=== PATIENT | male | born 1990 | race African-American/Black ===

== ENCOUNTER 2016-04-06 00:40 | Emergency (ER) | payer BC ==
[~2016-04-06] VITALS: Ht 180.3 cm; Wt 133.9 kg
[~2016-04-06 00:40] MED LIST: ATOR20TA58 PO; GLIM2TAB2 PO; LEVO500T38 PO; LISI5TAB PO; METF500T4 PO
[2016-04-06] MEDS ORDERED: KETOROLAC TROMETHAMINE 30 MG/ML SYRINGE. IV ONE (01:15)
[2016-04-06] MEDS ORDERED: ONDANSETRON PF 4 MG/2 ML VIAL. IV ONE (01:15)
[2016-04-06] MEDS ORDERED: IV NORMAL SALINE 1000ML BAG 1,000 ML IV ONE (01:15)
--- NOTE | 2016-04-06 01:17 | PHYS DOC ---
Past Medical History Past Medical History: Diabetes-Type II, High Cholesterol, Hypertension Past Surgical History: No Surgical History Alcohol Use: None Drug Use: None Adult General Chief Complaint Chief Complaint: HEADACHE HPI HPI 26-year-old male who is a newly diabetic who started insulin therapy several months ago who states he's had difficulty controlling his blood sugars. Over the last several days he's had some nausea and vomiting with headache. He was at work tonight and checked his blood glucose and found it to be registering as high. He decided to prevent for evaluation. He also states he is having history of high cholesterol, hypertension and may have some mild kidney disease. He states he has had polydipsia and polyuria. He rates his headache as mild and rated a 6/10 on the pain scale. Review of Systems Review of Systems Constitutional: Denies fever or chills [] Eyes: Denies change in visual acuity, redness, or eye pain [] HENT: Denies nasal congestion or sore throat [] Respiratory: Denies cough or shortness of breath [] Cardiovascular: No additional information not addressed in HPI [] GI: Denies abdominal pain, has nausea, has vomiting, denies bloody stools or diarrhea [] : Denies dysuria or hematuria [] Musculoskeletal: Denies back pain or joint pain [] Integument: Denies rash or skin lesions [] Neurologic: Has headache, denies focal weakness, denies sensory changes [] Endocrine: Denies polyuria or polydipsia [] Current Medications Current Medications Current Medications Medications (Trade) Dose Ordered Sig/Michael Start Time Stop Time Status Last Admin Dose Admin Ketorolac Tromethamine (Toradol) 30 mg 1X ONCE 04/06/16 01:15 04/06/16 01:49 DC 04/06/16 01:15 30 MG Ondansetron HCl (Zofran) 4 mg 1X ONCE 04/06/16 01:15 04/06/16 01:49 DC 04/06/16 01:15 4 MG Sodium Chloride (Iv Sodium Chloride 0.9% 1000ml Bag) 1,000 ml @ 1,000 mls/hr 1X ONCE 04/06/16 01:15 04/06/16 02:14 DC 04/06/16 01:15 1,000 MLS/HR Allergies Allergies Allergies Coded Allergies Type Severity Reaction Last Updated Verified No Known Drug Allergies 12/25/13 No Physical Exam Physical Exam Constitutional: Well developed, well nourished, no acute distress, non-toxic appearance. [] HENT: Normocephalic, atraumatic, bilateral external ears normal, oropharynx moist, no oral exudates, nose normal. [] Eyes: PERRLA, EOMI, conjunctiva normal, no discharge. [] Neck: Normal range of motion, no tenderness, supple, no stridor. [] Cardiovascular:Heart rate regular rhythm, no murmur [] Lungs & Thorax: Bilateral breath sounds clear to auscultation [] Abdomen: Bowel sounds normal, soft, no tenderness, no masses, no pulsatile masses. [] Skin: Warm, dry, no erythema, no rash. [] Back: No tenderness, no CVA tenderness. [] Extremities: No tenderness, no cyanosis, no clubbing, ROM intact, no edema. [] Neurologic: Alert and oriented X 3, normal motor function, normal sensory function, no focal deficits noted. [] Psychologic: Affect normal, judgement normal, mood normal. [] Current Patient Data Vital Signs Vital Signs Date Time Temp Pulse Resp B/P Pulse Ox O2 Delivery O2 Flow Rate FiO2 04/06/16 00:55 98.4 83 20 170/79 96 Room Air 98.4 Lab Values Laboratory Tests Test 04/06/16 00:53 04/06/16 00:55 04/06/16 01:35 04/06/16 02:00 Glucose (Fingerstick) 376mg/dL (70-99) H White Blood Count 6.8x10^3/uL (4.0-11.0) Red Blood Count 4.94x10^6/uL (4.30-5.70) Hemoglobin 13.2g/dL (13.0-17.5) Hematocrit 41.0% (39.0-53.0) Mean Corpuscular Volume 83fL (79-100) Mean Corpuscular Hemoglobin 27pg (25-35) Mean Corpuscular Hemoglobin Concent 32g/dL (31-37) Red Cell Distribution Width 13.0% (11.5-14.5) Platelet Count 211x10^3/uL (140-400) Neutrophils (%) (Auto) 51% (31-73) Lymphocytes (%) (Auto) 37% (24-48) Monocytes (%) (Auto) 10% (0-9) H Eosinophils (%) (Auto) 2% (0-3) Basophils (%) (Auto) 1% (0-3) Neutrophils # (Auto) 3.4x10^3uL (1.8-7.7) Lymphocytes # (Auto) 2.5x10^3/uL (1.0-4.8) Monocytes # (Auto) 0.7x10^3/uL (0.0-1.1) Eosinophils # (Auto) 0.1x10^3/uL (0.0-0.7) Basophils # (Auto) 0.0x10^3/uL (0.0-0.2) Sodium Level 137mmol/L (136-145) Potassium Level 3.7mmol/L (3.5-5.1) Chloride Level 100mmol/L (98-107) Carbon Dioxide Level 25mmol/L (21-32) Anion Gap 12 (6-14) Blood Urea Nitrogen 11mg/dL (8-26) Creatinine 1.0mg/dL (0.7-1.3) Estimated GFR (Cockcroft-Gault) 111.1 BUN/Creatinine Ratio 11 (6-20) Glucose Level 394mg/dL (70-99) H Calcium Level 9.2mg/dL (8.5-10.1) Total Bilirubin 0.4mg/dL (0.2-1.0) Aspartate Amino Transferase (AST) 19U/L (15-37) Alanine Aminotransferase (ALT) 38U/L (16-63) Alkaline Phosphatase 71U/L (46-116) Total Protein 7.6g/dL (6.4-8.2) Albumin 3.7g/dL (3.4-5.0) Albumin/Globulin Ratio 0.9 (1.0-1.7) L Influenza Type A Antigen Negative (NEGATIVE) Influenza Type B Antigen Negative (NEGATIVE) Urine Collection Type Unknown Urine Color Yellow Urine Clarity Clear Urine pH 6.0 Urine Specific [place] >=1.030 Urine Protein Negativemg/dL (NEG-TRACE) Urine Glucose (UA) >=1000mg/dL (NEG) Urine Ketones (Stick) Negativemg/dL (NEG) Urine Blood Negative (NEG) Urine Nitrite Negative (NEG) Urine Bilirubin Negative (NEG) Urine Urobilinogen Dipstick 0.2mg/dL (0.2 mg/dL) Urine Leukocyte Esterase Negative (NEG) Urine RBC Occ/HPF (0-2) Urine WBC Occ/HPF (0-4) Urine Squamous Epithelial Cells Occ/LPF Urine Bacteria 0/HPF (0-FEW) Laboratory Tests 04/06/16 00:55 Laboratory Tests 04/06/16 00:55 EKG EKG EKG as interpreted by me shows a sinus rhythm with a leftward axis and a rate of 85 bpm. There are noted T-wave inversions in leads V3, V4, V5, V6, lead 2, lead 3, aVF. These findings were also present on EKG he had obtained back in 2015 and there is not a significant degree of change on this EKG compared to the previous EKG. Radiology/Procedures Radiology/Procedures [] Course & Med Decision Making Course & Med Decision Making Pertinent Labs and Imaging studies reviewed. (See chart for details) 26-year-old male who is having an elevated blood glucose will be given fluids and laboratory workup to rule out any acute laboratory abnormalities. Ultimately if his laboratory workup is negative, he will be safe to be discharged to follow closely with Veronica Cardoso for better control of his blood glucose levels. His auditory workup was unrevealing. His urine did not reveal any ketones. His blood glucose while elevated is in the 300s and is safe for him to be discharged with close follow-up with Dr. Cardoso. I gave him strict instructions to remain well-hydrated take anti-inflammatories for his headache. He was discharged without incident feeling improved after receiving a liter of fluid and a dose of IV Toradol. Dragon Disclaimer Dragon Disclaimer This electronic medical record was generated, in whole or in part, using a voice recognition dictation system. Departure Departure Impression: Primary Impression: Hyperglycemia Additional Impression: Headache Disposition: 01 HOME, SELF-CARE Condition: STABLE Referrals: VERONICA CARDOSO MD (PCP) Patient Instructions: Hyperglycemia, [id number] Additional Instructions: Please follow-up with Dr. Cardoso as instructed in the next 1-2 days. Continue to drink plenty of fluids. Return to the ER if you develop any worsening of your symptoms. Continue to take your insulin as prescribed. Problem Qualifiers ELVIA MCINTOSH DO Apr 06, 2016 01:17
[2016-04-06 01:22] LABS: BASO % 1 % (0-3); EOS % 2 % (0-3); HEMOGLOBIN 13.2 g/dL (13.0-17.5); LYMPH # 2.5 x10^3/uL (1.0-4.8); LYMPH % 37 % (24-48); MEAN CORPUSCULAR HEMOGLOBIN 27 pg (25-35); MEAN CORPUSCULAR HGB CONC 32 g/dL (31-37); MEAN CORPUSCULAR VOLUME 83 fL (79-100); MONO % 10 % (0-9); NEUT % 51 % (31-73); PLATELET COUNT 211 x10^3/uL (140-400); RED BLOOD COUNT 4.94 x10^6/uL (4.30-5.70); WHITE BLOOD COUNT 6.8 x10^3/uL (4.0-11.0)
[2016-04-06 01:28] LABS: CALCIUM 9.2 mg/dL (8.5-10.1); GFR 111.1; POTASSIUM 3.7 mmol/L (3.5-5.1)
[2016-04-06 01:35] LABS: ALBUMIN 3.7 g/dL (3.4-5.0); ALBUMIN/GLOBULIN RATIO 0.9 (1.0-1.7); TOTAL BILIRUBIN 0.4 mg/dL (0.2-1.0); TOTAL PROTEIN 7.6 g/dL (6.4-8.2)
[2016-04-06 02:08] LABS: OBC FLU VALID
[2016-04-06 02:26] VITALS: BP 148/79
[2016-04-06 02:34] LABS: BILIRUBIN,URINE NEGATIVE (NEG); GLUCOSE,URINE >=1000 mg/dL (NEG); NITRITE,URINE NEGATIVE (NEG); PROTEIN,URINE NEGATIVE (NEG-TRACE); UROBILINOGEN,URINE 0.2 mg/dL (0.2 mg/dL)
[2016-04-06 02:45] LABS: BACTERIA,URINE 0 /HPF (0-FEW); RBC,URINE OCC /HPF (0-2); SQUAMOUS EPITHELIAL CELL,UR OCC /LPF; WBC,URINE OCC /HPF (0-4)
--- NOTE | 2016-04-06 06:49 | EKG ---
[facility] [address] [place] [address] Test Date: 2016-04-06 Test Time: 01:22:35 Pat Name: KAROLYN ARECHIGA Department: Room: Gender: M Electronic Engineering Draftsperson: : 1990 Requested By: ELVIA MCINTOSH Order Number: [id number] Reading MD: Sweta Méndez Measurements Intervals [place] Rate: 85 P: 34 CT: 122 QRS: -3 QRSD: 86 T: -31 QT: 334 QTc: 402 Interpretive Statements SINUS RHYTHM LEFTWARD AXIS ST & T ABNORMALITY, CONSIDER LATERAL ISCHEMIA ABNORMAL ECG Electronically Signed On 04-07-2016 9:34:32 [employer]INE PIPEFIT[employer] HELPER by Sweta Méndez
== END 2016-04-06 03:02 | disposition home or self-care (01) ==
LOC: ER 01:10
DX: E11.65 Type 2 diabetes mellitus with hyperglycemia (principal); R51 Headache; E78.00 Pure hypercholesterolemia, unspecified; I10 Essential (primary) hypertension
CPT/HCPCS: 36415; 80053; 81001; 82947; 85027; 87804; 93005; 96361; 96374; 96375; 99285; J1885; J2405; J7030

== ENCOUNTER 2016-07-22 09:21 | Emergency (ER) | payer BC ==
[~2016-07-22] VITALS: Ht 180.3 cm; Wt 131.5 kg
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
[2016-07-22] MEDS ORDERED: TRAM50TA PO (10:39)
[2016-07-22 10:42] VITALS: BP 152/91
== END 2016-07-22 10:53 | disposition home or self-care (01) ==
LOC: ER 09:21
DX: S00.83XA Contusion of other part of head, initial encounter (principal); J30.9 Allergic rhinitis, unspecified; H92.02 Otalgia, left ear; E11.9 Type 2 diabetes mellitus without complications; I10 Essential (primary) hypertension; E78.00 Pure hypercholesterolemia, unspecified; G47.30 Sleep apnea, unspecified; Y04.8XXA Assault by other bodily force, initial encounter; Y93.89 Activity, other specified; Y92.89 Other specified places as the place of occurrence of the external cause; Y99.8 Other external cause status
CPT/HCPCS: 70110; 99284

== ENCOUNTER 2017-04-15 08:16 | Emergency (ER) | payer SELFPAY, BC ==
[2017-04-15] MEDS ORDERED: CONTRAST GIVEN MC (08:45)
[2017-04-15] MEDS: ONDANSETRON PF 4 MG/2 ML VIAL. IV (08:52)
[2017-04-15] MEDS: MORPHINE SULFATE 4 MG/ML DISP.SYRIN. IV/SQ (08:52)
[2017-04-15] MEDS: IV NORMAL SALINE 1000ML BAG 1,000 ML IV (08:53)
[2017-04-15 08:56] LABS: ADD MAN DIFF? NO
[2017-04-15 09:03] LABS: BASO % 0 % (0-3); EOS # 0.1 x10^3/uL (0.0-0.7); EOS % 1 % (0-3); HEMATOCRIT 41.6 % (39.0-53.0); LYMPH # 2.9 x10^3/uL (1.0-4.8); LYMPH % 44 % (24-48); MEAN CORPUSCULAR HEMOGLOBIN 27 pg (25-35); MEAN CORPUSCULAR HGB CONC 34 g/dL (31-37); MEAN CORPUSCULAR VOLUME 80 fL (79-100); MONO # 0.6 x10^3/uL (0.0-1.1); MONO % 9 % (0-9); NEUT % 46 % (31-73); PLATELET COUNT 234 x10^3/uL (140-400); RED BLOOD COUNT 5.17 x10^6/uL (4.30-5.70); RED CELL DISTRIBUTION WIDTH 13.4 % (11.5-14.5); WHITE BLOOD COUNT 6.5 x10^3/uL (4.0-11.0)
[2017-04-15 09:12] LABS: ANION GAP 14 (6-14); BLOOD UREA NITROGEN 11 mg/dL (8-26); CALCIUM 8.6 mg/dL (8.5-10.1); CARBON DIOXIDE 24 mmol/L (21-32); CHLORIDE 98 mmol/L (98-107); CREATININE 0.9 mg/dL (0.7-1.3); GFR 124.4; GLUCOSE 344 mg/dL (70-99); POTASSIUM 3.9 mmol/L (3.5-5.1); SODIUM 136 mmol/L (136-145)
[2017-04-15 09:13] LABS: PARTIAL THROMBOPLASTIN TIME 28 SEC (24-38); PROTHROMBIN TIME PATIENT 12.4 SEC (11.7-14.0)
[2017-04-15 09:15] LABS: ETHANOL < 10 mg/dL (0-10)
[2017-04-15 09:21] LABS: LACTIC ACID 2.5 mmol/L (0.4-2.0)
[2017-04-15 09:30] LABS: TROPONINI < 0.017 ng/mL (0.000-0.055)
[2017-04-15] MEDS: IOHEXOL 300 MG/ML 100ML VIAL. IV (09:43)
[2017-04-15 09:50] LABS: BILIRUBIN,URINE NEGATIVE (NEG); CLARITY,URINE CLEAR; COLOR,URINE YELLOW; GLUCOSE,URINE >=1000 mg/dL (NEG); NITRITE,URINE NEGATIVE (NEG); PROTEIN,URINE >=300 mg/dL (NEG-TRACE); UROBILINOGEN,URINE 0.2 mg/dL (0.2 mg/dL)
[2017-04-15 10:00] LABS: BACTERIA,URINE 0 /HPF (0-FEW); WBC,URINE 0 /HPF (0-4)
[2017-04-15 10:23] LABS: BARBITURATES NEG (NEG); BENZODIAZEPINES NEG (NEG); CANNABINOIDS NEG (NEG); COCAINE NEG (NEG); METHADONE NEG (NEG); OPIATES POS (NEG); PHENCYCLIDINE NEG (NEG)
[2017-04-15 10:27] LABS: AMPHETAMINE/METHAMPHETAMINE NEG (NEG); ETHANOL, URINE NEG (NEG)
== END 2017-04-15 11:56 | disposition home or self-care (01) ==
LOC: ER 08:16
DX: S16.1XXA Strain of muscle, fascia and tendon at neck level, initial encounter (principal); S30.1XXA Contusion of abdominal wall, initial encounter; M25.511 Pain in right shoulder; E78.00 Pure hypercholesterolemia, unspecified; I10 Essential (primary) hypertension; G47.30 Sleep apnea, unspecified; E11.65 Type 2 diabetes mellitus with hyperglycemia; V43.52XA Car driver injured in collision with other type car in traffic accident, initial encounter; Y93.I9 Activity, other involving external motion; Y92.410 Unspecified street and highway as the place of occurrence of the external cause; Y99.8 Other external cause status
CPT/HCPCS: 36415; 70450; 71045; 72125; 73030; 73080; 74177; 80048; 80307; 81001; 83605; 84484; 85025; 85610; 85730; 86850; 86900; 86901; 93005; 96361; 96374; 96375; 99285-25; G0480; J2270; J2405; J7030; Q9967

== ENCOUNTER 2018-09-11 16:07 | Emergency (ER) | payer BC ==
[2017-04-15 11:54] VITALS: BP 156/83
[~2018-09-11 16:07] MED LIST changes: +CYCL10TA2 PO; +IBUP-1007 PO; -LEVO500T38 PO; +LEVO500T59 PO; +METF500T16 PO; -METF500T4 PO; +TRAM50TA PO
== END 2018-09-11 17:00 | disposition left against medical advice (07) ==
LOC: ER 16:07
DX: M79.18 Myalgia, other site (principal); Z53.21 Procedure and treatment not carried out due to patient leaving prior to being seen by health care provider

== ENCOUNTER → 2020-01-11 | Outpatient (CLI) | payer BC ==
[2017-04-15 11:54] VITALS: BP 156/83
[~2020-01-11] MED LIST changes: -GLIM2TAB2 PO; +GLIM2TAB7 PO
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
== END ==
LOC: KCIC 14:29
DX: S99.912A Unspecified injury of left ankle, initial encounter (principal); M77.32 Calcaneal spur, left foot; M79.89 Other specified soft tissue disorders; X58.XXXA Exposure to other specified factors, initial encounter; Y93.89 Activity, other specified; Y92.89 Other specified places as the place of occurrence of the external cause; Y99.8 Other external cause status
CPT/HCPCS: 73610; 73630

== ENCOUNTER 2020-10-10 15:03 | Emergency (ER) | payer BC ==
[2017-04-15 11:54] VITALS: BP 156/83
== END 2020-10-10 15:41 | disposition left against medical advice (07) ==
LOC: ER 15:03
DX: H57.89 Other specified disorders of eye and adnexa (principal); Z53.21 Procedure and treatment not carried out due to patient leaving prior to being seen by health care provider